=== PATIENT | male | born 1945 | race Caucasian/White ===

== ENCOUNTER → 2017-01-16 | Outpatient (CLI) | payer OTHER ==
[~2017-01-16] VITALS: Ht 188 cm; Wt 117.7 kg
[~2017-01-16] MED LIST: AVODART0.5 MG PO; CELEBREX 200 M200 MG PO; CELEXA 10 MG TA10 M1; GLUCOPHAGE500 MG PO; HYDROCODON-ACE1 EAC8 PO; HYDROCODONE-AP1 EAC6 PO; MEDROLDOSEPACK PO; MOBIC7.5 MG PO; PROSCAR 5MG TABL5 MG PO; RESTORIL30 MG PO; SIMVASTATIN40 MG PO; TAMSULOSIN HCL0.4 M1; XANAX 0.5 MG0.5 M1 PO
--- NOTE | ~2017-01-16 | HPC ---
[facility] [address] [place] [address] PAIN MANAGEMENT CONSULTATION Name: RACHEL PEPE JR Room #: REG [facility]#: [id number] Admission: 01/16/17 Attend Phys: Blaine Seymour MD Discharge: Date of : 47 Report #: [id number] THIS REPORT FOR: //name// CC: Steffi Seymour DATE OF SERVICE: 01/16/2017 FOLLOWUP COMPLAINT: Pain has returned. FOLLOWUP HISTORY: The patient is a 71-year-old gentleman who has been seen in the Pain Clinic in the past because of lumbar radiculopathy. He has undergone epidural steroid injections in the past and gleaned significant benefit from these. He returns today indicating that his pain has started to recur. He is experiencing pain which is radiating down his low back into the left buttocks and involving his leg. Pain has been doing reasonably well, but in December, he noted pain and discomfort, which has started to increase, radiate down into his leg with numbness, weakness, burning and sharp pain in the area. Pain improves when he lies down and is exacerbated by certain activities of daily living. ALLERGIES: NAPROSYN. MEDICATIONS: Proscar 5 mg daily, Zocor 40 mg daily, Celexa 10 mg, Flomax 0.4 mg daily. PAST MEDICAL HISTORY: Diabetes. PHYSICAL EXAMINATION: Blood pressure 152/97, pulse 93, respiratory rate 16, room air saturation 97%. The patient has fallen in the last 3 months. He would like to proceed with another epidural steroid injection, which has been quite helpful. Last time seen in the pain clinic was 3 years ago. IMPRESSION: 1. Lumbar radiculopathy in the L5-S1 distribution on the left. 2. Hypercholesterolemia. 3. Hypertension. RECOMMENDATIONS: We will proceed with an epidural steroid injection. Risks and benefits of the procedure were again reviewed. Possible complications were discussed. The patient elects to proceed. PROCEDURE NOTE: The patient was placed in the prone position. Fluoroscopy was used to identify the L5-S1 nerve root area. A 17-gauge Tuohy with loss of resistance technique was used to gain access to the epidural space. There was no CSF, heme or paresthesia. Total of 80 mg Depo-Medrol, 40 mg triamcinolone [address] [address] PAIN MANAGEMENT CONSULTATION Name: AFSHINRACHEL [facility] [id number] Admission: 01/16/17 Attend Phys: Blaine Seymour MD Discharge: Date of : 47 Report #: [id number] and 2 mL of 0.5% bupivacaine was injected. The patient tolerated the procedure well. There were no complications. His pain level was 2 at the time of discharge. He will follow up in the future as needed. Total of 15 seconds fluoroscopy time was used. By: [id number] Blaine Seymour MD /
[2017-01-16 08:53] VITALS: BP 152/97
== END | disposition home or self-care (01) ==
LOC: PAIN 06:53
DX: M54.16 Radiculopathy, lumbar region (principal); E78.00 Pure hypercholesterolemia, unspecified; I10 Essential (primary) hypertension; Z88.8 Allergy status to other drugs, medicaments and biological substances; Z79.899 Other long term (current) drug therapy; E11.9 Type 2 diabetes mellitus without complications; Z83.3 Family history of diabetes mellitus